=== PATIENT | male | born 1985 | race Caucasian/White ===

== ENCOUNTER 2016-10-13 15:12 | Emergency (ER) | payer OTHER ==
[~2016-10-13] VITALS: Ht 182.9 cm; Wt 71.7 kg
[2016-10-13 15:41] VITALS: BP 151/99
== END 2016-10-13 17:52 | disposition home or self-care (01) ==
LOC: ED 15:12
DX: S90.31XA Contusion of right foot, initial encounter (principal); Z91.030 Bee allergy status; W22.8XXA Striking against or struck by other objects, initial encounter; Y93.89 Activity, other specified; Y99.8 Other external cause status; Y92.89 Other specified places as the place of occurrence of the external cause

== ENCOUNTER 2017-07-01 14:45 | Emergency (ER) | payer OTHER ==
[~2017-07-01] VITALS: Ht 182.9 cm; Wt 81.2 kg
[2017-07-01 14:55] VITALS: Ht 182.9 cm; Wt 81.2 kg
[2017-07-01 16:05] VITALS: BP 163/94
== END 2017-07-01 16:05 | disposition home or self-care (01) ==
LOC: ED 14:45
DX: J45.909 Unspecified asthma, uncomplicated (principal); F17.200 Nicotine dependence, unspecified, uncomplicated; Z71.6 Tobacco abuse counseling
CPT/HCPCS: 99406; J1100; J7613; J7644

== ENCOUNTER 2018-03-09 08:52 | Emergency (ER) | payer OTHER ==
[~2018-03-09] VITALS: Ht 182.9 cm; Wt 71.3 kg
[2018-03-09 09:03] VITALS: Ht 182.9 cm; Wt 71.3 kg
[2018-03-09 09:38] VITALS: BP 165/110
== END 2018-03-09 10:33 | disposition home or self-care (01) ==
LOC: ED 08:52
DX: R51 Headache (principal); F17.210 Nicotine dependence, cigarettes, uncomplicated; Z91.030 Bee allergy status
CPT/HCPCS: J1885